=== PATIENT | male | born 1990 | race Caucasian/White ===

== ENCOUNTER 2021-02-06 21:25 | Emergency (ER) | payer OTHER ==
[2021-02-06 23:05] LABS: HEMOGLOBIN 16.9 gm/dl (14.0-17.5); RED BLOOD COUNT 5.53 M/UL (4.20-5.50); WHITE BLOOD COUNT 13.1 K/UL (4.5-11.0)
[2021-02-06 23:24] LABS: BUN/CREATININE RATIO 11 (0-10)
[2021-02-07] MEDS ORDERED: PERCOCET 5-3251 EACH PO (01:06)
[2021-02-07] MEDS ORDERED: FLOMAX0.4 MG PO (01:28)
== END 2021-02-07 01:56 | disposition home or self-care (01) ==
LOC: ER1 21:25
PROVIDERS: Physician Assistant Medical
DX: N13.2 Hydronephrosis with renal and ureteral calculous obstruction (principal); F17.210 Nicotine dependence, cigarettes, uncomplicated; E87.6 Hypokalemia
CPT/HCPCS: 80053; 81001; 85025; 96374; 99284; J1885